=== PATIENT | male | born 1950 | race American Indian/Alaskan Native ===

== ENCOUNTER 2019-11-11 06:28 | Day surgery (SDC) | payer OTHER ==
[2019-11-11] MEDS ORDERED: ONDANSETRON 4 MG/2 ML INJ IV PRN (07:34)
[2019-11-11] MEDS ORDERED: fentaNYL 100 MCG/2 ML INJ IV PRN (07:34)
--- NOTE | 2019-11-11 07:37 | Anesthesia Day of Surgery ---
Anesthesia Day of Surgery - Day of Surgery Patient Examined: Yes Patient H&P Reviewed: Yes Patient is NPO: Yes
[2019-11-11] MEDS ORDERED: propofoL 200 MG/20 ML VIAL IV ONE (07:42)
[2019-11-11] MEDS ORDERED: LIDOCAINE MPF (2%) 20 MG/1 ML VIAL 5 ML ONE (07:43)
--- NOTE | 2019-11-11 07:49 | Anesthesia Consultation ---
Anesthesia Consult and Med Hx Date of service: 11/11/19 - Airway Mallampati Class: Class I Intubation Access Assessment: (denture) - Pulmonary Exam CTA: Yes (stage IV NSCLC met to colon on chemo) - Cardiac Exam Cardiac Exam: RRR Anesthetic Concerns: h/o SVT - Pre-Operative Health Status ASA Pre-Surgery Classification: ASA4 Proposed Anesthetic Plan: General - Pulmonary Hx Smoking: Yes (NSCLC) Hx Sleep Apnea: No (SNORES-DRY MOUTH AFTER SLEEPING-HAS NOT BEEN TESTED YET.) - Cardiovascular System Hx Hypertension: Yes Hx Cardia Arrhythmia: Yes (SVT) Hx Peripheral Vascular Disease: Yes (AAA repaired) - Central Nervous System Hx Back Pain: Yes (CONSTANT AND LEG & FEET PAIN AND NEUROPATHY) Hx Psychiatric Problems: Yes - Gastrointestinal Hx Gastroesophageal Reflux Disease: Yes (mild) - Hematic Hx Anemia: Yes - Other Systems Hx Alcohol Use: No Hx Substance Use: No 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
[2019-11-11 07:52] LABS: Hemoglobin 14.4 gm/dl (11.8-15.2); Mean Corpuscular HGB Conc 34 % (32-34); Mean Corpuscular Volume 90 fl (84-94); Platelet Count 174 K/mm3 (140-440); Red Blood Count 4.76 M/mm3 (3.65-5.03); Red Cell Distribution Width 15.1 % (13.2-15.2)
[2019-11-11] MEDS ORDERED: LACTATED RINGERS 1,000 ML IV SCH (08:00)
[2019-11-11] MEDS ORDERED: ceFAZolin/STERILE WATER 2 GM/20 ML SYRINGE IV NR (08:05)
[2019-11-11] MEDS ORDERED: WATER FOR IRRIG STERILE 1,500 ML BOTTLE IR ONE (08:17)
[2019-11-11] MEDS ORDERED: WATER FOR IRRIG STERILE 2000 ML IR ONE ×2 (08:18)
[2019-11-11] MEDS ORDERED: ONDANSETRON 4 MG/2 ML INJ ONE (08:53)
[2019-11-11] MEDS ORDERED: PHENYLEPHRINE/NS 1,000 MCG/10 ML SYRINGE (OR USE) IV ONE (09:02)
--- NOTE | 2019-11-11 09:51 | Fluoroscopy Report ---
FLUOROSCOPY BILATERAL RETROGRADE UROGRAPHY HISTORY: [Gross hematuria.] FINDINGS: Fluoroscopy was provided by radiology during retrograde urography by the urologist. [There is normal filling of both renal collecting systems. No filling defect or abnormal dilatation is ident ified.] IMPRESSION: [Unremarkable bilateral retrograde pyelograms] Fluoroscopy time: [8 minutes] Fluoroscopic images: [5] Signer Name: Heladio Knutson MD Signed: 11/11/2019 9:47 AM Workstation Name: [id number]
--- NOTE | 2019-11-11 09:59 | Operative Report ---
PREOPERATIVE DIAGNOSIS: Bladder lesions. POSTOPERATIVE DIAGNOSIS: Bladder lesions. PROCEDURE: Cystoscopy, resection of bladder tumor right side and left side with random biopsies, retrograde. SURGEON: Dr. Henning. ANESTHESIA: General. FINDINGS: This is a gentleman with bladder lesion on the right side, one on the left side. It looks a little papillary suspicious. He is a smoker. He now presents for treatment. DESCRIPTION OF PROCEDURE: The patient was brought to the operating room and placed on the operating table. Following induction of anesthesia, placed in lithotomy position, prepped and draped in usual sterile fashion. Retrograde showed good filling, good drainage bilaterally. Urine was obtained for cytology and there were lots of crystals in the bladder. Right lateral wall shows a 1 cm area, which was biopsied and removed. Deep biopsies were obtained well into the muscle. On the left side, a smaller lesion was removed as well. Random biopsies were obtained as well. The patient tolerated the procedure well. No significant complication. Martins was inserted, brought to recovery in stable condition. JOB# [id number] OMER/SUSHMA
--- NOTE | 2019-11-11 10:35 | Post Operative Note ---
Date of procedure: 11/11/19 Pre-op diagnosis: bladder lesions Post-op diagnosis: same Findings: likely tcc Procedure: cysto excison lesions Anesthesia: GETA Surgeon: ABRAHAM COYLE Estimated blood loss: minimal Pathology: list (bladder) Specimen disposition: to lab Condition: stable Disposition: PACU
--- NOTE | 2019-11-11 10:36 | Discharge Summary ---
Short Stay Discharge Plan Activity: other (no straining ) Weight Bearing Status: Full Weight Bearing Diet: low fat, low cholesterol, low salt Special Instructions: other (home with catheter ) Durable Medical Equipment Needed Upon Discharge: other (connolly ) Follow up with: [facility] [Primary Care Provider] - 7 Days ABRAHAM COYLE MD [Staff Physician] - 7 Days Forms: Outpatient Surgery DC Inst.
[2019-11-11 10:50] VITALS: BP 143/70
--- NOTE | 2019-11-11 23:15 | Post Anesthesia Evaluation ---
- Post Anesthesia Evaluation Patient Participated: Yes Airway Patent: Yes Stable Respiratory Function: Yes Nausea/Vomiting: No Temp > 96.8F: Yes Pain Manageable: Yes Adequeate Hydration: Yes Anesthesia Complications: No Block Receding Appropriately: Not Applicable Patient on Ventilator: No
== END 2019-11-11 10:51 | disposition home or self-care (01) ==
LOC: OR 06:28
PROVIDERS: ATTEND Urology
DX: N32.9 Bladder disorder, unspecified (principal); D41.4 Neoplasm of uncertain behavior of bladder; R31.29 Other microscopic hematuria; I10 Essential (primary) hypertension; K21.9 Gastro-esophageal reflux disease without esophagitis; D64.9 Anemia, unspecified; E78.00 Pure hypercholesterolemia, unspecified; J43.9 Emphysema, unspecified; F32.9 Major depressive disorder, single episode, unspecified; F17.210 Nicotine dependence, cigarettes, uncomplicated; Z79.899 Other long term (current) drug therapy; Z88.8 Allergy status to other drugs, medicaments and biological substances; Z98.890 Other specified postprocedural states
CPT/HCPCS: 36415; 52204; 74420; 85027; 88112; 88305; 88341; 88342; A4217; C1758; J0690; J2370; J2405; J2704; J3010; J7120; Q9967

== ENCOUNTER 2020-04-20 08:32 | Day surgery (SDC) | payer OTHER ==
[2020-04-16 09:49] LABS: Hematocrit 44.3 % (35.5-45.6); Hemoglobin 14.6 gm/dl (11.8-15.2); Mean Corpuscular HGB Conc 33 % (32-34); Mean Corpuscular Volume 90 fl (84-94); Platelet Count 184 K/mm3 (140-440); Red Blood Count 4.93 M/mm3 (3.65-5.03); Red Cell Distribution Width 14.5 % (13.2-15.2)
[2020-04-16 09:56] LABS: Alanine Aminotransferase 10 units/L (7-56); Albumin 4.1 g/dL (3.9-5); BUN/Creatinine Ratio 18; Blood Urea Nitrogen 16 mg/dL (9-20); Calcium 8.9 mg/dL (8.4-10.2); Hemolysis Index 7
--- NOTE | 2020-04-16 10:25 | Anesthesia Consultation ---
Anesthesia Consult and Med Hx Date of service: 04/20/20 - Airway Anesthetic Teeth Evaluation: Dentures ROM Head & Neck: Adequate Mental/Hyoid Distance: Adequate Mallampati Class: Class I Intubation Access Assessment: Good (previous LMA 5) - Pulmonary Exam CTA: Yes - Cardiac Exam Cardiac Exam: RRR - Pre-Operative Health Status ASA Pre-Surgery Classification: ASA3 Proposed Anesthetic Plan: General - Pulmonary Hx Smoking: Yes SOB: No COPD: Yes (emphysema; not yet on inhalers) Home Oxygen Therapy: No Hx Sleep Apnea: No - Cardiovascular System Hx Hypertension: Yes Hx Heart Attack/AMI: No Hx Percutaneous Transluminal Coronary Angioplasty (PTCA): No Hx Cardia Arrhythmia: Yes (hx SVT; none in >1yr) Hx Pacemaker: No Hx Internal Defibrillator: No Hx Peripheral Vascular Disease: Yes (hx aortic aneurysm repair) - Central Nervous System CVA: No Hx Back Pain: Yes (with b/l LE neuropathy) Hx Psychiatric Problems: Yes (depression) - Gastrointestinal Hx Gastroesophageal Reflux Disease: Yes (mild) - Endocrine Hx Renal Disease: No Hx Liver Disease: No Hx Insulin Dependent Diabetes: No Hx Non-Insulin Dependent Diabetes: No Hx Hypothyroidism: Yes - Hematic Hx Anemia: No - Other Systems Hx Cancer: Yes (bladder, lung, and colon ca) Hx Obesity: No - Additional Comments Anesthesia Medical History Comments: No hx anesthetic complications.
[~2020-04-20 08:32] MED LIST: LACTATED RINGERS 1,000 ML IV SCH
[2020-04-20] MEDS ORDERED: fentaNYL 100 MCG/2 ML INJ IV PRN (08:55)
--- NOTE | 2020-04-20 08:56 | Anesthesia Day of Surgery ---
Anesthesia Day of Surgery - Day of Surgery Patient Examined: Yes Patient H&P Reviewed: Yes Patient is NPO: Yes
[2020-04-20] MEDS ORDERED: MIDAZOLAM 2 MG/2 ML INJ IV NR (09:00)
[2020-04-20] MEDS ORDERED: ceFAZolin/STERILE WATER 2 GM/20 ML SYRINGE IV NR (10:15)
[2020-04-20] MEDS ORDERED: propofoL 200 MG/20 ML VIAL IV ONE (10:58)
[2020-04-20] MEDS ORDERED: HYDROmorphone 1 MG/1 ML INJ ONE (10:58)
[2020-04-20] MEDS ORDERED: LIDOCAINE MPF (2%) 20 MG/1 ML VIAL 5 ML ONE (10:59)
[2020-04-20] MEDS ORDERED: WATER FOR IRRIG STERILE 2000 ML IR ONE (11:45)
--- NOTE | 2020-04-20 11:58 | Post Operative Note ---
Date of procedure: 04/20/20 Pre-op diagnosis: bladder cancer Post-op diagnosis: same Findings: old scars Procedure: cysto biopsies rpgs Anesthesia: GETA Surgeon: ABRAHAM COYLE Estimated blood loss: none Pathology: list (bladder) Specimen disposition: to lab Condition: stable Disposition: PACU
--- NOTE | 2020-04-20 12:00 | Discharge Summary ---
Short Stay Discharge Plan Activity: other Weight Bearing Status: Full Weight Bearing Diet: low fat, low cholesterol, low salt Special Instructions: other (inc fluids ) Durable Medical Equipment Needed Upon Discharge: other (home with connolly x 3 days ) Follow up with: [facility] [Primary Care Provider] - 7 Days ABRAHAM COYLE MD [Staff Physician] - 3 Days
--- NOTE | 2020-04-20 12:07 | Operative Report ---
PREOPERATIVE DIAGNOSIS: History of bladder cancer. POSTOPERATIVE DIAGNOSIS: History of bladder cancer. PROCEDURE: Cystoscopy, retrograde biopsy. SURGEON: Dr. Henning. ANESTHESIA: General. FINDINGS: This is a gentleman with a history of bladder cancer and had BCG, now presents for followup cystoscopy. DESCRIPTION OF PROCEDURE: The patient was brought to the operating room and placed on the operating table. Following induction of anesthesia, placed in lithotomy position, prepped and draped in usual sterile fashion. Cystourethroscopy showed no recurrent lesions. Multiple biopsies were obtained. Area was cauterized. Retrograde showed good filling, good drainage, no persistent filling defects. A biopsy of the prostatic urethra was also obtained. Urine was sent for cytology. The patient tolerated the procedure well and brought to recovery in stable condition. JOB# [id number] OMER/SUSHMA
--- NOTE | 2020-04-20 12:34 | Fluoroscopy Report ---
FL retrograde urography INDICATION / CLINICAL INFORMATION: MALIGNANT NEOPLASM OF BLADDER. COMPARISON: 11/11/2019. FINDINGS: Retrograde injection of both ureters and collecting systems. Aneurysmal dilatation of the aorta appea rs similar to the previous exam. Fluoroscopy time: 10 seconds. Fluoroscopic images: 4. Signer Name: Gil Woods MD Signed: 04/20/2020 12:30 PM Workstation Name: [id number]
--- NOTE | 2020-04-20 13:11 | Post Anesthesia Evaluation ---
- Post Anesthesia Evaluation Patient Participated: Yes Airway Patent: Yes Stable Respiratory Function: Yes Nausea/Vomiting: No Temp > 96.8F: Yes Pain Manageable: Yes Adequeate Hydration: Yes Anesthesia Complications: No
[2020-04-20 13:15] VITALS: BP 138/66
== END 2020-04-20 13:15 | disposition home or self-care (01) ==
LOC: OR 08:32
PROVIDERS: ATTEND Urology
DX: C67.2 Malignant neoplasm of lateral wall of bladder (principal); Z11.59 Encounter for screening for other viral diseases; G62.9 Polyneuropathy, unspecified; J43.9 Emphysema, unspecified; I73.9 Peripheral vascular disease, unspecified; E78.00 Pure hypercholesterolemia, unspecified; I10 Essential (primary) hypertension; K21.9 Gastro-esophageal reflux disease without esophagitis; E03.9 Hypothyroidism, unspecified; F32.9 Major depressive disorder, single episode, unspecified; Z88.5 Allergy status to narcotic agent; Z79.899 Other long term (current) drug therapy; Z87.891 Personal history of nicotine dependence; Z85.118 Personal history of other malignant neoplasm of bronchus and lung; Z85.038 Personal history of other malignant neoplasm of large intestine; Z87.442 Personal history of urinary calculi; Z87.440 Personal history of urinary (tract) infections; Z98.890 Other specified postprocedural states
CPT/HCPCS: 36415; 52204; 74420; 80053; 85027; 88112; 88305; A4217; C1758; J0690; J1170; J2250; J2704; J7120; Q9967; U0003

== ENCOUNTER 2020-07-27 07:22 | Day surgery (SDC) | payer OTHER ==
--- NOTE | 2020-07-23 12:11 | Anesthesia Consultation ---
Anesthesia Consult and Med Hx Date of service: 07/27/20 - Airway Anesthetic Teeth Evaluation: Dentures, Edentulous ROM Head & Neck: Adequate Mental/Hyoid Distance: Adequate Mallampati Class: Class II Intubation Access Assessment: Good - Pre-Operative Health Status ASA Pre-Surgery Classification: ASA3 Proposed Anesthetic Plan: General - Pulmonary Hx Smoking: Yes (Lung ca) Hx Asthma: No SOB: No COPD: Yes (emphysema; not yet on inhalers) Hx Pneumonia: No Hx Sleep Apnea: No - Cardiovascular System Hx Hypertension: Yes Hx Heart Attack/AMI: No Hx Percutaneous Transluminal Coronary Angioplasty (PTCA): No Hx Cardia Arrhythmia: Yes (hx SVT; none in >1yr) Hx Pacemaker: No Hx Internal Defibrillator: No Hx Heart Murmur: No Hx Peripheral Vascular Disease: Yes (hx aortic aneurysm repair) - Central Nervous System CVA: No Hx Back Pain: Yes (with b/l LE neuropathy limits his activity some) Hx Psychiatric Problems: Yes (depression) - Gastrointestinal Hx Gastroesophageal Reflux Disease: Yes (mild) - Endocrine Hx Renal Disease: No Hx Liver Disease: No Hx Insulin Dependent Diabetes: No Hx Non-Insulin Dependent Diabetes: No Hx Hypothyroidism: Yes - Hematic Hx Anemia: No Hx Sickle Cell Disease: No - Other Systems Hx Alcohol Use: No Hx Substance Use: No Hx Cancer: Yes (bladder, lung, and colon ca) Hx Obesity: No
[2020-07-27] MEDS ORDERED: fentaNYL 100 MCG/2 ML INJ IV PRN (07:39)
--- NOTE | 2020-07-27 07:39 | Anesthesia Day of Surgery ---
Anesthesia Day of Surgery - Day of Surgery Patient Examined: Yes Patient H&P Reviewed: Yes Patient is NPO: Yes
[2020-07-27] MEDS ORDERED: ceFAZolin/STERILE WATER 2 GM/20 ML SYRINGE IV NR (09:00)
[2020-07-27] MEDS ORDERED: LIDOCAINE MPF (2%) 20 MG/1 ML VIAL 5 ML ONE (09:08)
[2020-07-27] MEDS ORDERED: HYDROmorphone 1 MG/1 ML INJ ONE (09:08)
[2020-07-27] MEDS ORDERED: propofoL 200 MG/20 ML VIAL IV ONE (09:08)
[2020-07-27] MEDS ORDERED: WATER FOR IRRIG STERILE 1,500 ML BOTTLE IR ONE (09:11)
[2020-07-27] MEDS ORDERED: WATER FOR IRRIG STERILE 2000 ML IR ONE (09:11)
--- NOTE | 2020-07-27 09:15 | Post Operative Note ---
Pre-op diagnosis: bladder cancer Post-op diagnosis: same Findings: see note Procedure: cysto rpgs biopsies Anesthesia: GETA Surgeon: ABRAHAM COYLE Estimated blood loss: minimal Pathology: list (bladder) Specimen disposition: to lab Condition: stable Disposition: PACU
--- NOTE | 2020-07-27 09:16 | Discharge Summary ---
Short Stay Discharge Plan Activity: other (no straining ) Weight Bearing Status: Full Weight Bearing Diet: low fat, low cholesterol, low salt Special Instructions: other (inc fluids ) Durable Medical Equipment Needed Upon Discharge: other (teach cath care ) Follow up with: [facility] [Primary Care Provider] - 7 Days ABRAHAM COYLE MD [Staff Physician] - 3 Days
[2020-07-27] MEDS ORDERED: ePHEDrine SULFATE 50 MG/1 ML INJ ONE (09:44)
[2020-07-27] MEDS ORDERED: ONDANSETRON 4 MG/2 ML INJ ONE (09:58)
--- NOTE | 2020-07-27 10:36 | Operative Report ---
PREOPERATIVE DIAGNOSIS: Bladder cancer, previous carcinoma in situ. POSTOPERATIVE DIAGNOSES: Bladder cancer, previous carcinoma in situ. PROCEDURE: Cystoscopy, retrograde biopsy. SURGEON: Dr. Henning. ANESTHESIA: General. FINDINGS: This is a gentleman with history of bladder cancer. No recent gross hematuria. He was supposed to have this done earlier, but he had some gallbladder problem. He now presents for cystoscopy. DESCRIPTION OF PROCEDURE: The patient was brought to the operating room and placed on the table. Following induction of anesthesia, placed in lithotomy position, prepped and draped in usual sterile fashion. Cystourethroscopy showed no bladder lesions. The old scar was seen. A biopsy was obtained. A separate small area of erythema was biopsied and fulgurated. The patient tolerated the procedure well. Retrograde showed good filling, good drainage bilaterally and a Martins catheter was placed. There was no significant bleeding, brought to recovery in stable condition. JOB# [id number] OMER/SUSHMA
[2020-07-27 11:47] VITALS: BP 140/60
--- NOTE | 2020-07-27 15:35 | Fluoroscopy Report ---
INTRAOPERATIVE FLUOROSCOPY: RETROGRADE UROGRAPHY INDICATION: BLADDER CANCER. TECHNIQUE: Intraoperative spot images were obtained during the procedure. FINDINGS: There is injection of both ureters/collecting systems. Calyces appear sharp. Areas of ureteral narrow ing may be related to peristalsis, intraluminal filling defects may be foci of gas. Correlate with fi ndings at the time of injection. No cavitation or hydronephrosis. Fluoroscopy Time: 15 seconds. Fluoroscopy Images: 6. Signer Name: Miguel Chin MD Signed: 07/27/2020 3:30 PM Workstation Name: [id number]
== END 2020-07-27 12:14 | disposition home or self-care (01) ==
LOC: OR 07:22
PROVIDERS: ATTEND Urology
DX: C67.2 Malignant neoplasm of lateral wall of bladder (principal); Z20.828 Contact with and (suspected) exposure to other viral communicable diseases; N32.89 Other specified disorders of bladder; G62.9 Polyneuropathy, unspecified; I73.9 Peripheral vascular disease, unspecified; E78.00 Pure hypercholesterolemia, unspecified; I10 Essential (primary) hypertension; J43.9 Emphysema, unspecified; K21.9 Gastro-esophageal reflux disease without esophagitis; F17.210 Nicotine dependence, cigarettes, uncomplicated; E03.9 Hypothyroidism, unspecified; F32.9 Major depressive disorder, single episode, unspecified; Z87.442 Personal history of urinary calculi; Z88.8 Allergy status to other drugs, medicaments and biological substances; Z79.899 Other long term (current) drug therapy; Z79.82 Long term (current) use of aspirin; Z85.118 Personal history of other malignant neoplasm of bronchus and lung; Z85.038 Personal history of other malignant neoplasm of large intestine; Z90.49 Acquired absence of other specified parts of digestive tract; Z98.890 Other specified postprocedural states
CPT/HCPCS: 52204; 74420; 88112; 88305; A4217; C1758; J0690; J1170; J2405; J2704; J7120; Q9967; U0003